=== PATIENT | male | born 1990 | race Caucasian/White ===

== ENCOUNTER 2016-12-07 05:46 | Emergency (ER) | payer OTHER ==
[~2016-12-07] VITALS: Ht 167.6 cm; Wt 99.9 kg
[~2016-12-07 05:46] MED LIST: NOHOMEMEDS
[2016-12-07 06:22] LABS: CHLORIDE 107 mEq/L (99-109); POTASSIUM 3.6 mEq/L (3.7-5.4); SODIUM 141 mEq/L (136-147)
[2016-12-07 06:24] LABS: GLUCOSE 145 mg/dL (70-99)
[2016-12-07 06:25] LABS: ANION GAP 10 MEQ/L (2-14)
[2016-12-07 06:26] LABS: TOTAL BILIRUBIN 0.7 mg/dL (0.0-1.0)
[2016-12-07 06:27] LABS: ALKALINE PHOSPHATASE 109 IU/L (3-129)
[2016-12-07 06:28] LABS: GFR ESTIMATE (CALCULATED) > 59 mL/min/
[2016-12-07 06:29] LABS: UREA NITROGEN (BUN) 14 mg/dL (9-23)
[2016-12-07 06:40] LABS: HEMATOCRIT 46.9 % (38.0-50.0); MCH 28.7 PG (29.0-34.0); MCHC 34.5 G/DL (30.0-36.0); MEAN PLAT.VOLUME 9.8 uM^3 (9.0-12.4); PLATELET COUNT 286 K/uL (156-360); RBC DIS.WIDTH-CV 12.4 % (11.8-14.6); RBC DIS.WIDTH-SD 37.3 % (39-53); RED BLOOD COUNT 5.65 M/uL (4.00-5.50); WHITE BLOOD COUNT 7.7 K/uL (4.1-10.2)
[2016-12-07 07:14] LABS: ADD MIUA? NO; BILIRUBIN NEGATIVE; BLOOD NEGATIVE; COLOR YELLOW ((YELLOW)); GLUCOSE (STRIP) NEGATIVE; KETONES NEGATIVE; LEUKOCYTES NEGATIVE; NITRITE NEGATIVE; PROTEIN (STRIP) NEGATIVE; SPECIFIC GRAVITY 1.021 (1.000-1.030); UCUL ADDED? NO; UROBILINOGEN 0.2 MG/DL (0.2-1.0)
[2016-12-07] MEDS ORDERED: GAVISCON,GEN1 TABLE1 PO (08:40)
[2016-12-07] MEDS ORDERED: PEPCID40 MG PO (08:40)
[2016-12-07 09:15] VITALS: BP 139/96
== END 2016-12-07 09:06 | disposition home or self-care (01) ==
LOC: EME 05:46
DX: K29.60 Other gastritis without bleeding (principal)
CPT/HCPCS: 80053; 81003; 85027; 99281; 99284